=== PATIENT | male | born 2000 | race Two or more races ===

== ENCOUNTER 2022-11-10 23:19 | Emergency (ER) | payer MEDICAID, OTHER ==
[~2022-11-10] VITALS: Ht 170.2 cm; Wt 56.8 kg
[2022-11-10] MEDS ORDERED: SODIUM CHLORIDE 0.9% 1,000 ML IV ONE (23:45)
[2022-11-10] MEDS ORDERED: PANTOPRAZOLE 40 MG/10 ML VIAL INJ IV ONE (23:45)
[2022-11-10 23:56] LABS: Basophils # (auto) 0 10 ^3/uL (0-0.2); Basophils % (auto) 0.6 % (0.0-2.0); Eosinophils # (auto) 0 10 ^3/uL (0-0.8); Eosinophils % (auto) 0.3 % (0.0-7.0); Hematocrit 47.1 % (41.0-53.0); Hemoglobin 16.5 g/dL (13.5-17.5); Lymphocytes # (auto) 2.2 10 ^3/uL (0.4-5.4); Lymphocytes % (auto) 45.1 % (10.0-50.0); Mean Corpuscular Hemoglobin 32.8 pg (28.0-32.0); Mean Corpuscular Hgb Conc. 34.9 g/dL (32.0-36.0); Monocytes # (auto) 0.4 10 ^3/uL (0-1.3); Monocytes % (auto) 8.4 % (0.0-12.0); Neutrophils # (auto) 2.3 10 ^3/uL (1.6-8.6); Neutrophils % (auto) 45.6 % (37.0-80.0); Red Blood Cells 5.02 10^6/uL (4.5-5.90); Red Cell Distribution Width 12.6 % (11.8-14.3); White Blood Cell 4.9 10^3/uL (4.4-10.8)
[2022-11-11 00:09] LABS: INR 1.16 (0.9-1.15); Partial Thromboplastin Time 31.4 SEC (24.5-34.5); Prothrombin Time 12.1 sec (9.3-11.8)
[2022-11-11 00:11] LABS: Acetaminophen < 2.0 UG/ML (10.0-20.0); Alanine Aminotransferase 17 U/L (7-40); Albumin 4.7 g/dL (3.2-4.8); Alkaline Phosphatase 76 U/L (46-116); Anion Gap 8.5 (5-15); Aspartate Aminotransferase 13 U/L (13-40); Blood Alcohol 121.9 mg/dL (<10); Calcium 9.3 mg/dL (8.7-10.4); Carbon Dioxide 26.5 mmol/L (20-30); Chloride 106 mmol/L (98-107); Creatine Kinase IFCC 78 U/L (46-171); Glucose 94 mg/dL (74-106); Lipase 30 U/L (12-53); Magnesium 2.1 mg/dL (1.6-2.6); Potassium 4.1 mmol/L (3.5-5.1); Sodium 141 mmol/L (136-145)
[2022-11-11 00:12] LABS: Bilirubin, Total 0.8 mg/dL (0.2-1.0); Total Protein 7.5 g/dL (5.7-8.2)
[2022-11-11 00:13] LABS: BUN/Creatinine Ratio 6.2 (10.0-20.0); Blood Urea Nitrogen < 5 mg/dL (9-23); Salicylate < 3.0 mg/dL (2.8-20.0)
[2022-11-11] MEDS ORDERED: SODIUM CHLORIDE 0.9% 1,000 ML IV ONE ×2 (00:15→05:30)
[2022-11-11 00:30] VITALS: PULSE 96; RESP 18; O2SAT 96
[2022-11-11] MEDS ORDERED: IOHEXOL 350 MG/ML 100ML IJ ONE (00:45)
[2022-11-11 04:05] LABS: Chloride 111 mmol/L (98-107); Potassium 4.2 mmol/L (3.5-5.1); Sodium 142 mmol/L (136-145)
[2022-11-11 04:06] LABS: Anion Gap 7.9 (5-15); Calcium 8.1 mg/dL (8.7-10.4); Carbon Dioxide 23.1 mmol/L (20-30)
[2022-11-11 04:11] LABS: Glucose 94 mg/dL (74-106)
[2022-11-11 04:12] LABS: BUN/Creatinine Ratio 6.3 (10.0-20.0); Blood Urea Nitrogen < 5 mg/dL (9-23)
[2022-11-11 05:23] VITALS: O2SAT 98
[2022-11-11 06:22] LABS: Urine Bacteria NONE SEEN /hpf (None Seen); Urine Blood Negative /uL (Negative); Urine Clarity Clear (Clear); Urine Protein, UAD Negative (Negative); Urine Specific Gravity 1.047 (1.001-1.035); Urine Urobilinogen Normal (Negative); Urine WBC 3 /hpf (0 - 3); Urine pH 6.5 (5.0-8.0)
[2022-11-11 06:23] LABS: Urine Color Straw (Yellow)
[2022-11-11 06:44] LABS: Amphetamine Screen, Urine Neg (NEGATIVE)
[2022-11-11 06:45] LABS: Barbiturate Scree,Urine Neg (NEGATIVE); Benzodiazephine Screen, Urine Neg (NEGATIVE); Cannabinoid Screen, Urine Neg (NEGATIVE); Cocaine Screen, Urine Neg (NEGATIVE); Opiate Scree,Urine Neg (NEGATIVE); Phencyclidine Screen, Urine Neg (NEGATIVE)
[2022-11-11 07:04] VITALS: BP 122/61; PULSE 82; RESP 18
== END 2022-11-11 07:35 | disposition home or self-care (01) ==
LOC: EDBD 23:19 → ER 23:19
DX: T39.312A Poisoning by propionic acid derivatives, intentional self-harm, initial encounter (principal); F10.10 Alcohol abuse, uncomplicated; Y92.89 Other specified places as the place of occurrence of the external cause
CPT/HCPCS: 36415; 74018; 74177; 80048; 80053; 80307; 80320; 80329; 81001; 82550; 83605; 83690; 83735; 85025; 85610; 85730; 93005; 96361; 96374; 99285; C9113; J7030; Q9967